=== PATIENT | male | born 1960 | race Caucasian/White ===

== ENCOUNTER → 2017-04-27 14:08 | Outpatient (CLI) | payer OTHER, SELFPAY ==
[2017-04-27 14:23] LABS: Basophils % 0.5 % (0.1-2.0); Eosinophils # 0.1 K/mm3 (0.0-0.4); Eosinophils % 2.1 % (0.1-12.0); Hematocrit 39.9 % (42.0-52.0); Hemoglobin 13.1 g/dL (14.1-18.0); Lymphocytes # 1.3 K/mm3 (0.7-4.5); Lymphocytes % 20.4 K/mm3 (10-50); Mean Corpuscular HGB Conc 32.7 g/dL (31.8-35.4); Mean Corpuscular Hemoglobin 27.8 pg (27.0-31.2); Mean Platelet Volume 7.5 fl (7.4-10.4); Monocytes # 0.4 K/mm3 (0.1-1.0); Neutrophils # 4.5 K/mm3 (1.8-7.8); Platelet Count 218 K/mm3 (142-424); Red Blood Count 4.69 M/mm3 (4.60-6.20); Red Cell Distribution Width 13.4 % (11.5-17.5); White Blood Count 6.4 K/mm3 (4.8-10.8)
[2017-04-27 15:15] LABS: Free T4 (Free Thyroxine) 0.68 ng/dl (0.76-1.46); Thyroid Stimulating Hormone 17.39 uIU/ml (0.358-3.740)
== END ==
PROVIDERS: PCP Family Medicine; Visit Provider Otolaryngology
DX: R22.1 Localized swelling, mass and lump, neck (principal); D49.0 Neoplasm of unspecified behavior of digestive system; Z01.818 Encounter for other preprocedural examination
CPT/HCPCS: 36415; 84439; 84443; 85025; 93005

== ENCOUNTER 2017-04-30 08:24 | Day surgery (SDC) | payer OTHER, SELFPAY ==
[2017-04-28 14:53] VITALS: BMI 27.1
[2017-04-30] VITALS (9 sets, daily range): BP systolic 128–149; BP diastolic 73–86; PULSE 69–79; RESP 12–23; TEMP 36.1–36.3; O2SAT 99–100
--- NOTE | 2017-04-30 09:42 | HMH.ANESCL ---
[facility] Anesthesia Checklist - Structural Data Admitted From: Home Planned Operative Procedure/s: microlaryngoscopy Consent for Planned Operative Procedure(s) Verified: Yes Verified Documents: Surgical Consent - NPO Status Verified Time NPO: 12:00 - Airway Assessment C-Spine Mobility Assessed: Yes TMJ Mobility Assessed: Yes Dentition: Poor Dentition - Neurological Assessment Level of Consciousness: Awake, Alert - Anesthesia Plan Anesthesia Risk discussed: Yes Anesthesia Plan: Verified ASA Class: II Anesthesia Type: General [facility] Anesthesia HX I have reviewed the patient's past medical history: Yes Medical History: Denies:: Cancer, Diabetes Mellitus Type 1, Diabetes Mellitus Type 2, Internal Pacemaker, MRSA, Seizures Other Medical History: Reports: Thyroid Disease. Denies: Blood Transfusion Reaction Laterality Cases: Right: Other Other Surgeries: No: Pacemaker Amputation: No Fractures: Yes (right jaw) Comment: jaw,ear *Family Hx:: Coronary Artery Disease, Heart Attack, Hypertension
--- NOTE | 2017-04-30 09:45 | P.PN_ITS ---
[facility] Anesthesia Checklist - Structural Data Admitted From: Home Planned Operative Procedure/s: microlaryngoscopy Consent for Planned Operative Procedure(s) Verified: Yes Verified Documents: Surgical Consent - NPO Status Verified Time NPO: 12:00 - Airway Assessment C-Spine Mobility Assessed: Yes TMJ Mobility Assessed: Yes Dentition: Poor Dentition - Neurological Assessment Level of Consciousness: Awake, Alert - Anesthesia Plan Anesthesia Risk discussed: Yes Anesthesia Plan: Verified ASA Class: II Anesthesia Type: General [facility] Anesthesia HX I have reviewed the patient's past medical history: Yes Medical History: Denies:: Cancer, Diabetes Mellitus Type 1, Diabetes Mellitus Type 2, Internal Pacemaker, MRSA, Seizures Other Medical History: Reports: Thyroid Disease. Denies: Blood Transfusion Reaction Laterality Cases: Right: Other Other Surgeries: No: Pacemaker Amputation: No Fractures: Yes (right jaw) Comment: jaw,ear *Family Hx:: Coronary Artery Disease, Heart Attack, Hypertension
--- NOTE | 2017-04-30 11:53 | P.PN_ITS ---
[facility] Anesthesia Record Part II Discharge Time: 12:20 Destination: [facility] PACU nurse assessment reviewed?: Yes Patient Condition:: Good Anesthesia Complications:: None
--- NOTE | 2017-04-30 11:53 | P.PN_ITS ---
[facility] Anesthesia Record Part I Intake, IV Amount: 800 Estimated blood loss (mL): 25 Urine output (mL): 0 Blood Pressure: 132/84 SaO2: 99 Pulse Rate: 75 Respiratory Rate: 12 Temperature: 97 F Patient is:: Awake, Stable Stable to PACU at:: 11:50
--- NOTE | 2017-04-30 11:53 | HMH.ANESII ---
[facility] Anesthesia Record Part II Discharge Time: 12:20 Destination: [facility] PACU nurse assessment reviewed?: Yes Patient Condition:: Good Anesthesia Complications:: None
--- NOTE | 2017-04-30 15:12 | HMH.OPNOTE ---
Date of procedure: 04/30/17 Pre-op Diagnosis:: 1. hoarseness 2. neoplasm right base of tongue and base of tonsil Post-op diagnosis:: same Procedure performed:: 1. Microlaryngoscopy 2. biopsy of right base of tongue Surgeon:: Enzo Valencia MD CUSTOMS AND IMMIGRATION OFFICER:: Darius Weiss Anesthesia: GETA Estimated blood loss (mL): 2 Operative findings:: The patient under general anesthetic the anterior commissure laryngoscope was used to examine the larynx hypopharynx and subglottic larynx. There was polypoid disease on both vocal cords which was benign in appearance, and extensive tobacco mucositis throughout the supraglottic and subglottic portions of the larynx and hypopharynx. There was a exophytic lesion at the right base of tongue measuring 2 cm. And it seemed to extend into the lower 5% of the right tonsil. Multiple biopsies were taken from the lesion at the right base of tongue and submitted for pathology. Blood loss was less than 5 cc. Stopped with topical epinephrine. The throat was thoroughly irrigated and the patient was sent to recovery in good general condition. I should note that he has extensive periodontal and dental disease and I strongly recommended that he see a dentist as soon as possible because he will be requiring definitive treatment for this lesion at the right base of tongue. Which may entail resection, chemo and radiation or both. Pathology: other (multiple bx of lesion) Condition: stable Disposition: PACU Complications:: none
--- NOTE | 2017-04-30 15:18 | P.OP_ITS ---
Date of procedure: 04/30/17 Pre-op Diagnosis:: 1. hoarseness 2. neoplasm right base of tongue and base of tonsil Post-op diagnosis:: same Procedure performed:: 1. Microlaryngoscopy 2. biopsy of right base of tongue Surgeon:: Enzo Valencia MD CLIENT FINANCE ANALYST:: Darius Weiss Anesthesia: GETA Estimated blood loss (mL): 2 Operative findings:: The patient under general anesthetic the anterior commissure laryngoscope was used to examine the larynx hypopharynx and subglottic larynx. There was polypoid disease on both vocal cords which was benign in appearance, and extensive tobacco mucositis throughout the supraglottic and subglottic portions of the larynx and hypopharynx. There was a exophytic lesion at the right base of tongue measuring 2 cm. And it seemed to extend into the lower 5% of the right tonsil. Multiple biopsies were taken from the lesion at the right base of tongue and submitted for pathology. Blood loss was less than 5 cc. Stopped with topical epinephrine. The throat was thoroughly irrigated and the patient was sent to recovery in good general condition. I should note that he has extensive periodontal and dental disease and I strongly recommended that he see a dentist as soon as possible because he will be requiring definitive treatment for this lesion at the right base of tongue. Which may entail resection, chemo and radiation or both. Pathology: other (multiple bx of lesion) Condition: stable Disposition: PACU Complications:: none
== END 2017-04-30 13:05 | disposition home or self-care (01) ==
LOC: OR 08:26
PROVIDERS: Family Provider Family Medicine; PCP Family Medicine; Visit Provider Otolaryngology
PROC: 0CBS8ZX Excision of Larynx, Via Natural or Artificial Opening Endoscopic, Diagnostic (ICD-10-PCS; CPT 31576; 2017-04-30 10:00)
DX: D00.07 Carcinoma in situ of tongue (principal); Z87.891 Personal history of nicotine dependence
CPT/HCPCS: 31576; 96374; 96375; J2710

== ENCOUNTER 2017-06-22 09:53 | Emergency (ER) | payer OTHER, SELFPAY ==
[2017-06-22 09:54] VITALS: BP 113/68; PULSE 102; RESP 20; TEMP 36.9; O2SAT 98; BMI 24.4
--- NOTE | 2017-06-22 10:25 | HMH.EDGENADL ---
ED Disposition Clinical Impression: Epistaxis Disposition: Xfer Short-Term Hosp Condition on Discharge: Fair Referrals: Ronald Pierre MD [Primary Care Provider] - Time of Disposition: 10:31 - Critical Care Critical Care Time: No Attestation: On 06/22/17, the high probability of a clinically significant, sudden or life threatening deterioration of the following system(s) required my full and direct attention, intervention and personal management. The time I documented below is in addition to time spent performing reported procedures but includes the following listed in this critical care notation. Medical Decision Making - Medical Records Medical records reviewed: Yes: I reviewed the patient's medical records. - Alireza Inquiry Pt receiving controlled substance: No Vital Signs: 06/22/17 09:54 Temperature 98.5 F Temperature Source Oral Pulse Rate [Right Radial] 102 H Respiratory Rate 20 Blood Pressure [Right Arm] 113/68 Blood Pressure Mean [Right Arm] 83 Blood Pressure Source [Right Arm] Automatic Cuff Blood Pressure Position [Right Arm] Sitting 02 Sat by Pulse Oximetry 98 Oxygen Delivery Method Room Air - Lab Data Lab results reviewed: Yes: I reviewed the patient's lab results. I have reviewed the labs from done on 06/18/17, not the ones from today. Orders (Tests/Meds): ORDERS Category Date Time Status Complete Blood Count Auto Diff Stat Lab 06/22/17 10:18 Ordered Comprehensive Metabolic Panel Stat Lab 06/22/17 10:18 Ordered Occult Blood,Gastric Fluid Stat Lab 06/22/17 10:25 Received - Physician Consults Physician Consulted: call initiated with MD boothe TRANSFER at 10.23am Time: 10:31 Reason -: Pt condition, Transfer to another facilty, ENT Eval/Care Comment/Response: Call was picked up by Tiny, in call center, at 10:23am. Case was with Dr. Vargas Santana at 10:31 AM, advise of patient presentation and findings, agreeable with transfer directly to the ER, in view of necessary upcoming ENT evaluation/laryngoscopy in order to visualize the oropharynx (? site of bleed). The patient's oncologist is Dr. Oleary, the radiation oncologist is Dr Ayon, and ENT is Dr Valencia. - Reevaluation(s) Time: 10:36 Reevaluation #1: Upon reevaluation patient is hemodynamically stable, in no acute distress, with no further episodes of epistaxis.. Advised of need to transfer to indicate immediately, for laryngoscopy. General Adult HPI - General Chief complaint: Dental/Oral Stated complaint: had chemo , vomiting blood Time Seen by Provider: 06/22/17 10:15 Mode of Arrival: Ambulatory Limitations: No Limitations Description of Symptoms (Recalled from ER Triage Doc. 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 pt had his first chemo tx on . this morning pt started feeling like something was running down his throat pt started spitting up bright red blood with clots . 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 Oleary. She supposed to start radiation therapy tomorrow, with Dr. Hopper. Patient called daughter this morning because he started vomiting bright red blood in the trash can, approximately 150 mL's, after which he vomited an additional 50 mL's into the commode. Daughter has taken picture of the latter. MD complaint: epistaxis Onset (ago): hour(s) (1) Relieving factors: rest Exacerbating factors: movement Associated symptoms: denies other symptoms Treatments prior to arrival: none - Related Data Home Medications Medication Instructions Recorded Confirmed propylthiouracil 50 mg tablet 50 mg PO DAILY tab 05/07/17 Allergies
--- NOTE | 2017-06-22 10:30 | ED_ITS ---
ED Disposition Clinical Impression: Epistaxis Disposition: Xfer Short-Term Hosp Condition on Discharge: Fair Referrals: Ronald Pierre MD [Primary Care Provider] - Time of Disposition: 10:31 - Critical Care Critical Care Time: No Attestation: On 06/22/17, the high probability of a clinically significant, sudden or life threatening deterioration of the following system(s) required my full and direct attention, intervention and personal management. The time I documented below is in addition to time spent performing reported procedures but includes the following listed in this critical care notation. Medical Decision Making - Medical Records Medical records reviewed: Yes: I reviewed the patient's medical records. - Alireza Inquiry Pt receiving controlled substance: No Vital Signs: 06/22/17 09:54 Temperature 98.5 F Temperature Source Oral Pulse Rate [Right Radial] 102 H Respiratory Rate 20 Blood Pressure [Right Arm] 113/68 Blood Pressure Mean [Right Arm] 83 Blood Pressure Source [Right Arm] Automatic Cuff Blood Pressure Position [Right Arm] Sitting 02 Sat by Pulse Oximetry 98 Oxygen Delivery Method Room Air - Lab Data Lab results reviewed: Yes: I reviewed the patient's lab results. I have reviewed the labs from done on 06/18/17, not the ones from today. Orders (Tests/Meds): ORDERS Category Date Time Status Complete Blood Count Auto Diff Stat Lab 06/22/17 10:18 Ordered Comprehensive Metabolic Panel Stat Lab 06/22/17 10:18 Ordered Occult Blood,Gastric Fluid Stat Lab 06/22/17 10:25 Received - Physician Consults Physician Consulted: call initiated with MD boothe TRANSFER at 10.23am Time: 10:31 Reason -: Pt condition, Transfer to another facilty, ENT Eval/Care Comment/Response: Call was picked up by Tiny, in call center, at 10:23am. Case was with Dr. Vargas Santana at 10:31 AM, advise of patient presentation and findings, agreeable with transfer directly to the ER, in view of necessary upcoming ENT evaluation/laryngoscopy in order to visualize the oropharynx (? site of bleed). The patient's oncologist is Dr. Oleary, the radiation oncologist is Dr Ayon, and ENT is Dr Valencia. - Reevaluation(s) Time: 10:36 Reevaluation #1: Upon reevaluation patient is hemodynamically stable, in no acute distress, with no further episodes of epistaxis.. Advised of need to transfer to indicate immediately, for laryngoscopy. General Adult HPI - General Chief complaint: Dental/Oral Stated complaint: had chemo , vomiting blood Time Seen by Provider: 06/22/17 10:15 Mode of Arrival: Ambulatory Limitations: No Limitations Description of Symptoms (Recalled from ER Triage Doc. 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 pt had his first chemo tx on . this morning pt started feeling like something was running down his throat pt started spitting up bright red blood with clots . 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 Oleary. She supposed to start radiation therapy tomorrow, with Dr. Hopper. Patient called daughter this morning because he start
--- NOTE | 2017-06-22 10:32 | PC.NURSE ---
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
[2017-06-22 10:39] LABS: Occult Blood,Gastric Fluid Positive (Negative)
--- NOTE | 2017-06-22 10:47 | PC.NURSE ---
pt accepted by dr singh at . benny notified.
[2017-06-22 10:50] LABS: Basophils % 0.5 % (0.1-2.0); Eosinophils # 0.3 K/mm3 (0.0-0.4); Eosinophils % 5.5 % (0.1-12.0); Hematocrit 40.1 % (42.0-52.0); Hemoglobin 13.3 g/dL (14.1-18.0); Lymphocytes # 0.8 K/mm3 (0.7-4.5); Lymphocytes % 13.8 K/mm3 (10-50); Mean Corpuscular HGB Conc 33.3 g/dL (31.8-35.4); Mean Corpuscular Hemoglobin 28.3 pg (27.0-31.2); Mean Platelet Volume 7.4 fl (7.4-10.4); Monocytes # 0.4 K/mm3 (0.1-1.0); Monocytes % 7.5 % (1.7-9.3); Neutrophils # 4.2 K/mm3 (1.8-7.8); Neutrophils % 72.7 % (37.0-80.0); Platelet Count 281 K/mm3 (142-424); Red Blood Count 4.72 M/mm3 (4.60-6.20); Red Cell Distribution Width 12.8 % (11.5-17.5); White Blood Count 5.7 K/mm3 (4.8-10.8)
[2017-06-22 11:00] LABS: Alanine Aminotransferase 14 U/L (12-78); Albumin Level 3.3 gm/dL (3.4-5.0); Albumin/Globulin Ratio 0.8 (1.1-1.8); Alkaline Phosphatase 74 U/L (46-116); Anion Gap 12.8 mEq/L (5-15); Aspartate Amino Transferase 12 U/L (15-37); Bilirubin,Total 0.4 mg/dL (0.2-1.0); Blood Urea Nitrogen 13 mg/dL (7-18); Calcium 9.3 mg/dL (8.5-10.1); Carbon Dioxide 26 mmol/L (21.0-32.0); Chloride 105 mmol/L (98-107); Creatinine Clearance Estimated 146 mL/min (0-300); Creatinine,Serum 0.68 mg/dL (0.70-1.30); Estimated Glomerular Filt Rate 121 ml/min (>60); GFR (African American) 146 ML/MIN (>60); Globulin 4.3 gm/dl (1.3-3.2); Glucose 116 mg/dL (74-106); Potassium 3.8 mmoL/L (3.5-5.1); Sodium 140 mmol/L (136-145); Total Protein,Serum 7.6 gm/dL (6.4-8.2)
[2017-06-22 13:21] VITALS: BP 132/81; PULSE 72; RESP 18; TEMP 36.9; O2SAT 98
== END 2017-06-22 13:21 | disposition short-term general hospital (02) ==
PROVIDERS: Emergency Provider Emergency Medicine; Family Provider Family Medicine; PCP Family Medicine
DX: R04.0 Epistaxis (principal); Z87.891 Personal history of nicotine dependence; D00.07 Carcinoma in situ of tongue
CPT/HCPCS: 80053; 82272; 85025; 96374; 99283; G0328

== ENCOUNTER → 2017-12-22 10:18 | Outpatient (CLI) | payer OTHER, SELFPAY ==
--- NOTE | 2017-12-22 10:21 | XR_ITS ---
XR chest 2V HISTORY: Fever, cough, chest pain ITS.REASON: COUGH ORDERING PHYSICIAN: Ronald Pierre MD PATIENT AGE: 57 years COMPARISON: None FINDINGS: The cardiomediastinal silhouette and pulmonary vascularity are within normal limits. Consolidation is present in the right upper lobe with pneumonia. Patchy infiltrate also present in the right middle lobe. There is hyperinflation with attenuation of the peripheral pulmonary vessels consistent with COPD. Lucencies are present in the right apex with question of air-fluid levels. This may represent underlying cavitating process versus emphysematous areas surrounded by opacified lung. There is minimal blunting of the right CP angle suggesting small right effusion. No acute bony anomalies. IMPRESSION: 1. Right upper and right middle lobe pneumonia. 2. Possible cavitating process right apex which may be better evaluated with chest CT with contrast
== END ==
PROVIDERS: PCP Family Medicine; Visit Provider Family Medicine
DX: R05 Cough (principal)
CPT/HCPCS: 71046

== ENCOUNTER → 2018-04-13 14:07 | Outpatient (CLI) | payer OTHER, SELFPAY ==
[2018-04-13 15:37] LABS: Free T4 (Free Thyroxine) 1.41 ng/dl (0.76-1.46); Thyroid Stimulating Hormone 0.08 uIU/ml (0.358-3.740)
== END ==
PROVIDERS: Visit Provider Student in an Organized Health Care Education/Training Program
DX: E05.90 Thyrotoxicosis, unspecified without thyrotoxic crisis or storm (principal); E03.9 Hypothyroidism, unspecified
CPT/HCPCS: 36415; 84439; 84443

== ENCOUNTER → 2020-01-31 13:08 | Outpatient (CLI) | payer OTHER, SELFPAY ==
--- NOTE | 2020-01-31 13:12 | CT_ITS ---
PROCEDURE: CT LUNG SCREENING CLINICAL INDICATION: HX OF TOBACCO USE FORMER SMOKER HX OF FACE AND TONGUE CANCER Quit 3 years ago ? Pack year smoking history COMPARISON: CT [facility] CT CHEST W/O CONTRAST from 09/25/2015 CR CXR2V XR chest 2V from 12/22/2017 TECHNIQUE: The exam was performed on a [employer] Speed [address] scanner using 2.90 mGy CTDI. A low dose helical CT CHEST was performed on a multi-detector scanner. All CT scans at the facility use one or more dose reduction, viz: automated exposure control, ma/kV adjustment per patient size (including targeted exams where dose is matched to indication, i.e. head), or iterative reconstruction technique. The LDCT was performed in a facility that meets the criteria for the screening program. Data regarding this exam was submitted to ACR which is an approved registry. The order for this exam indicates that it came as a result of a lung cancer screening counseling shard decision-making visit that included all the elements required of such a visit including smoking cessation. The radiologist interpreting this exam meets the CMS criteria for the LDCT lung cancer screening program. The exam is reported using the Lung-RADS classification scale and reported to the ACR registry. NOTE: This study was performed for the specific purposes of lung cancer screening and is not an alternative to diagnostic chest CT. RADIATION DOSE: CTDI vol(CT dose Index-volume) = 2.90mG DLP (Dose Length Product) = 108.90 mGcm FINDINGS: There has been interval development of right apical pleural thickening. No obvious rib destruction. There are air bronchograms along the inferior margin of the pleural thickening. There is COPD changes with centrilobular emphysema. There is an area of irregular opacification in the left lower lobe posteriorly measuring approximately 3.7 x 1.8 by 2 cm. This has developed since the previous exam. OTHER FINDINGS: Coronary artery calcifications IMPRESSION: Lung-RADS Category 4A Suspicious. New right apical pleural thickening which is indeterminate and new parenchymal opacity in the left lower lobe also indeterminate. Neoplasm is not excluded. Follow-up: Suggest PET-CT for further evaluation. Dictated by: Mitesh Hung MD 02/05/2020 11:35 Mitesh Hung MD in [place] 02/05/2020 11:35
== END ==
PROVIDERS: PCP Family Medicine; Visit Provider Family Medicine
DX: Z87.891 Personal history of nicotine dependence (principal); Z12.2 Encounter for screening for malignant neoplasm of respiratory organs

== ENCOUNTER → 2021-03-25 10:24 | Outpatient (CLI) | payer OTHER, SELFPAY | PROVIDERS: PCP Family Medicine; Visit Provider Nurse Practitioner | DX: Z20.822 Contact with and (suspected) exposure to COVID-19 (principal) | CPT/HCPCS: C9803; U0003; U0005 ==

== ENCOUNTER → 2021-04-22 17:17 | Outpatient (CLI) | payer OTHER, SELFPAY | PROVIDERS: PCP Family Medicine; Visit Provider Nurse Practitioner | DX: U07.1 COVID-19 (principal) | CPT/HCPCS: C9803; U0003; U0005 ==

== ENCOUNTER → 2022-02-20 08:12 | Outpatient (CLI) | payer OTHER, SELFPAY ==
--- NOTE | 2022-02-20 08:26 | CT_ITS ---
FINAL REPORT CLINICAL HISTORY: FREQUENT HEADACHES 100ML ISOVUE 300 FINDINGS: Axial images of the head were obtained without and with contrast. Coronal reformatted images were also obtained. This study was performed with techniques to keep radiation doses as low as reasonably achievable (ALARA). Individualized dose reduction techniques using automated exposure control or adjustment of mA and/or kV according to the patient's size were employed. There is no evidence of intracranial hemorrhage or mass. There is no evidence of acute infarct. There is no evidence of shift of the midline structures. There is mild mucoperiosteal thickening in the right maxillary sinus. There has been resection of the right mastoid air cells and middle ear cavity. No abnormal contrast enhancement is seen. IMPRESSION: No acute intracranial abnormality identified. Reviewed, Interpreted and Dictated by Evangelist Valdez MD Transcribed by Jose Venegas Authenticated and [facility]
[2022-02-20 08:36] LABS: Blood Urea Nitrogen 13 mg/dl (9-20); Estimated Glomerular Filt Rate 86 ml/min (>60); GFR (African American) 104 ML/MIN (>60)
== END ==
PROVIDERS: PCP Family Medicine; Visit Provider Family Medicine
DX: R51.9 Headache, unspecified (principal)
CPT/HCPCS: 36415; 70470; 82565; 84520; Q9967